=== PATIENT | female | born 1970 | race African-American/Black ===

== ENCOUNTER 2018-12-31 10:03 | Emergency (ER) | payer OTHER ==
[~2018-12-31] VITALS: Ht 162.6 cm; Wt 84.2 kg
[2018-12-31 11:03] LABS: BACTERIA,URINE 0 /HPF (0-FEW); BILIRUBIN,URINE NEG (NEG); CLARITY,URINE HAZY; COLOR,URINE YELLOW; GLUCOSE,URINE NEG (NEG); HYALINE CASTS, URINE OCC /HPF; NITRITE,URINE NEG (NEG); RBC,URINE 0 /HPF (0-2); SQUAMOUS EPITHELIAL CELL,UR FEW /LPF; U PREG PATIENT NEGATIVE (NEG); UROBILINOGEN,URINE 0.2 mg/dL (0.2 mg/dL); WBC,URINE RARE /HPF (0-4)
[2018-12-31] MEDS ORDERED: IBUPROFEN 400 MG TABLET. PO ONE (11:10)
--- NOTE | 2018-12-31 11:57 | PHYS DOC ---
Past History Past Medical History: UTI Past Surgical History: Tubal ligation, Other Alcohol Use: None Drug Use: None Adult General Chief Complaint Chief Complaint: ABDOMINAL PAIN HPI HPI Patient is a 48 year old female who presents with complaining of lower abdominal pain. Patient states she was seen at urgent care because of the same pain and treated for UTI for 10 days with medication and" medication 2 days ago. Patient states her pain increased since she has stopped her medication. Patient said the pain is in suprapubic and left lower quadrant as a crampy pain with radiation to pelvis. Patient denies nausea and vomiting, urinary symptoms, diarrhea and constipation, fever and chills, vaginal bleeding or discharge. Patient states she had irregular menstruation for the last few months and had 1 month of vaginal bleeding in November that stopped recently. 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 Review of Systems Review of Systems Constitutional: Denies fever or chills [] Eyes: Denies change in visual acuity, redness, or eye pain [] HENT: Denies nasal congestion or sore throat [] Respiratory: Denies cough or shortness of breath [] Cardiovascular: No additional information not addressed in HPI [] GI: Reports abdominal pain, denies nausea, vomiting, bloody stools or diarrhea [ ] : Denies dysuria or hematuria [] Musculoskeletal: Denies back pain or joint pain [] Integument: Denies rash or skin lesions [] Neurologic: Denies headache, focal weakness or sensory changes [] Endocrine: Denies polyuria or polydipsia [] All other systems were reviewed and found to be within normal limits, except as documented in this note. Current Medications Current Medications Current Medications Medications (Trade) Dose Ordered Sig/Kaiden Start Time Stop Time Status Last Admin Dose Admin Ibuprofen (Motrin) 800 mg 1X ONCE 12/31/18 11:10 12/31/18 11:11 DC 12/31/18 10:54 800 MG Allergies Allergies Allergies Coded Allergies Type Severity Reaction Last Updated Verified No Known Drug Allergies 12/31/18 No Physical Exam Physical Exam Constitutional: Well developed, well nourished, mild distress, non-toxic appearance. [] HENT: Normocephalic, atraumatic Eyes: PERRLA, EOMI, conjunctiva normal, no discharge. [] Neck: Normal range of motion, no tenderness, supple, no stridor. [] Cardiovascular:Heart rate regular rhythm, no murmur [] Lungs & Thorax: Bilateral breath sounds clear to auscultation [] Abdomen: Bowel sounds normal, soft, no tenderness, suprapubic guarding, no masses, no pulsatile masses. [] Skin: Warm, dry, no erythema, no rash. [] Back: No tenderness, no CVA tenderness. [] Extremities: No tenderness, no cyanosis, no clubbing, ROM intact, no edema. [] Neurologic: Alert and oriented X 3, normal motor function, normal sensory function, no focal deficits noted. [] Psychologic: Affect normal, judgement normal, mood normal. [] Current Patient Data Vital Signs Vital Signs Date Time Temp Pulse Resp B/P (MAP) Pulse Ox O2 Delivery O2 Flow Rate FiO2 12/31/18 10:15 98.2 80 18 97 Room Air Lab Results Laboratory Tests Test 12/31/18 10:30 Urine Collection Type Unknown Urine Color Yellow Urine Clarity Hazy Urine pH 5.0 Urine Specific [place] 1.020 Urine Protein Neg (NEG-TRACE) Urine Glucose (UA) Neg mg/dL (NEG) Urine Ketones (Stick) Neg mg/dL (NEG) Urine Blood Neg (NEG) Urine Nitrite Neg (NEG) Urine Bilirubin Neg (NEG) Urine Urobilinogen Dipstick 0.2 mg/dL (0.2 mg/dL) Urine Leukocyte Esterase Trace (NEG) Urine RBC 0 /HPF (0-2) Urine WBC Rare /HPF (0-4) Urine Squamous Epithelial Cells Few /LPF Urine Bacteria 0 /HPF (0-FEW) Urine Hyaline Casts Occ /HPF Urine Mucus Slight /LPF Urine Test Negative (NEG) EKG EKG [] Radiology/Procedures Radiology/Procedures [address] [address] IMAGING REPORT Signed PATIENT: MAXIMILIANO DUARTE ACCOUNT: [id number] : 1970 LOCATION: ER AGE: 48 SEX: F EXAM STATUS: REG ER ORD. PHYSICIAN: HUNTER SHELTON MD REASON: suprapubic pain PROCEDURE: PELVIS COMPLETE Pelvic ultrasound dated 12/31/2018. No comparison available. Clinical data indication: Suprapubic pain. FINDINGS: Transabdominal pelvic ultrasound was performed. Uterus measures 11.6 x 6.8 x 7.8 cm. Large hypoechoic nodule within the uterine myometrium measuring up to 6.8 cm in size. The endometrium is not clearly visualized and likely obscured by the large mass. Right ovary measures 4.0 x 2.3 x 3.0 cm. Left ovary measures 4.9 x 6.1 x 5.4 cm. Simple cyst or dominant follicle at the left ovary measuring up to 1.8 cm in size. Normal color Doppler flow to both ovaries. No free fluid. IMPRESSION: 1. No acute sonographic abnormality. 2. Fibroid uterus. Electronically signed by: Dontae Cagle MD (12/31/2018 11:57 AM) [facility] DICTATED AND SIGNED BY: DONTAE CAGLE MD DATE: 12/31/18 1157 CC: HUNTER SHELTON MD; PCP,NO ~ Course & Med Decision Making Course & Med Decision Making Pertinent Labs and Imaging studies reviewed. (See chart for details) [] Dragon Disclaimer Dragon Disclaimer This electronic medical record was generated, in whole or in part, using a voice recognition dictation system. Departure Departure: Impression: Primary Impression: Pelvic pain Additional Impressions: Uterine fibroid Perimenopausal menorrhagia Disposition: 01 HOME, SELF-CARE (at 1225) Condition: IMPROVED Referrals: PCP,ANT (PCP) Patient Instructions: Pelvic Pain, Female, Uterine Fibroid, [id number] Additional Instructions: Drink plenty of liquids Follow-up with your CONSTRUCTION ANALYST physician in 3-5 days Return to ER if not getting better Scripts Naproxen (NAPROSYN) 500 Mg Tablet 500 MG PO BID for pain, #20 TAB Prov: HUNTER SHELTON MD 12/31/18 Problem Qualifiers Additional Impressions: Uterine fibroid Uterine leiomyoma location: unspecified location Qualified Codes: D25.9 - Leiomyoma of uterus, unspecified HUNTER SHELTON MD Dec 31, 2018 11:57
--- NOTE | 2018-12-31 12:00 | RAD ---
Pelvic ultrasound dated 12/31/2018. No comparison available. Clinical data indication: Suprapubic pain. FINDINGS: Transabdominal pelvic ultrasound was performed. Uterus measures 11.6 x 6.8 x 7.8 cm. Large hypoechoic nodule within the uterine myometrium measuring up to 6.8 cm in size. The endometrium is not clearly visualized and likely obscured by the large mass. Right ovary measures 4.0 x 2.3 x 3.0 cm. Left ovary measures 4.9 x 6.1 x 5.4 cm. Simple cyst or dominant follicle at the left ovary measuring up to 1.8 cm in size. Normal color Doppler flow to both ovaries. No free fluid. IMPRESSION: 1. No acute sonographic abnormality. 2. Fibroid uterus. Electronically signed by: Dontae Cagle MD (12/31/2018 11:57 AM) [facility]
[2018-12-31] MEDS ORDERED: NAPR-683 PO (12:27)
[2018-12-31 12:37] VITALS: BP 109/53
== END 2018-12-31 12:37 | disposition home or self-care (01) ==
LOC: ER 10:03
DX: D25.9 Leiomyoma of uterus, unspecified (principal); N92.4 Excessive bleeding in the premenopausal period; Z87.440 Personal history of urinary (tract) infections; Z98.51 Tubal ligation status
CPT/HCPCS: 76856; 81001; 81025; 87086; 99284

== ENCOUNTER 2019-01-21 17:00 | Emergency (ER) | payer OTHER ==
[~2019-01-21] VITALS: Ht 162.6 cm; Wt 89.6 kg
[~2019-01-21 17:00] MED LIST: NAPR-683 PO
[2019-01-21] MEDS ORDERED: ASPIRIN 81 MG TAB.CHEW PO ONE (17:45)
--- NOTE | 2019-01-21 17:52 | PHYS DOC ---
Past History Past Medical History: UTI (DEJUAN LAWRENCE DO) Past Surgical History: Tubal ligation, Other (DEJUAN LAWRENCE DO) Smoking: Non-smoker Alcohol Use: Occasionally Drug Use: None (DEJUAN LAWRENCE DO) Adult General Chief Complaint Chief Complaint: CHEST PAIN HPI HPI Patient is a 48-year-old female presents with right-sided chest pain and cough since approximately 3:00 this morning. Coughing makes the chest discomfort worse. No worse with exertion. No significant respirophasic component. Patient has had no recent travel, no trauma, no known hypercoagulable state. No fever. No medicines have been taken. Patient has been on antibiotics for recent urinary tract infection.] (DEJUAN LAWRENCE DO) Review of Systems Review of Systems Constitutional: Denies fever or chills [] Eyes: Denies change in visual acuity, redness, or eye pain [] HENT: Denies nasal congestion or sore throat [] Respiratory: Denies cough or shortness of breath [] Cardiovascular: No additional information not addressed in HPI [] GI: Denies abdominal pain, nausea, vomiting, bloody stools or diarrhea [] : Denies dysuria or hematuria [] Musculoskeletal: Denies back pain or joint pain [] Integument: Denies rash or skin lesions [] Neurologic: Denies headache, focal weakness or sensory changes [] Endocrine: Denies polyuria or polydipsia [] All other systems were reviewed and found to be within normal limits, except as documented in this note. (DEJUAN LAWRENCE DO) Current Medications Current Medications Current Medications Medications (Trade) Dose Ordered Sig/Kaiden Start Time Stop Time Status Last Admin Dose Admin Aspirin (Children'S Aspirin) 324 mg 1X ONCE 01/21/19 17:45 01/21/19 17:46 UNV (DEJUAN LAWRENCE DO) Allergies Allergies Allergies Coded Allergies Type Severity Reaction Last Updated Verified No Known Drug Allergies 01/21/19 No (DEJUAN LAWRENCE DO) Physical Exam Physical Exam Constitutional: Well developed, well nourished, no acute distress, non-toxic appearance. [] HENT: Normocephalic, atraumatic, bilateral external ears normal, oropharynx moist, no oral exudates, nose normal. [] Eyes: PERRLA, EOMI, conjunctiva normal, no discharge. [] Neck: Normal range of motion, no tenderness, supple, no stridor. [] Cardiovascular:Heart rate regular rhythm, no murmur [] Lungs & Thorax: Bilateral breath sounds clear to auscultation, mild chest discomfort with palpation over her right third and fourth intercostal space region mid clavicular line. [] Abdomen: Bowel sounds normal, soft, no tenderness, no masses, no pulsatile masses. [] Skin: Warm, dry, no erythema, no rash. [] Back: No tenderness, no CVA tenderness. [] Extremities: No tenderness, no cyanosis, no clubbing, ROM intact, no edema. [] Neurologic: Alert and oriented X 3, normal motor function, normal sensory function, no focal deficits noted. [] Psychologic: Affect normal, judgement normal, mood normal. [] ([facility]) Current Patient Data Vital Signs Vital Signs Date Time Temp Pulse Resp B/P (MAP) Pulse Ox O2 Delivery O2 Flow Rate FiO2 01/21/19 17:06 98.3 97 18 100 Room Air ([facility]) Lab Results Laboratory Tests Test 01/21/19 17:30 01/21/19 17:54 01/21/19 17:58 White Blood Count 4.2 x10^3/uL Red Blood Count 4.58 x10^6/uL Hemoglobin 11.8 g/dL Hematocrit 36.7 % Mean Corpuscular Volume 80 fL Mean Corpuscular Hemoglobin 26 pg Mean Corpuscular Hemoglobin Concent 32 g/dL Red Cell Distribution Width 16.8 % Platelet Count 177 x10^3/uL Neutrophils (%) (Auto) 59 % Lymphocytes (%) (Auto) 27 % Monocytes (%) (Auto) 10 % Eosinophils (%) (Auto) 4 % Basophils (%) (Auto) 1 % Neutrophils # (Auto) 2.5 x10^3uL Lymphocytes # (Auto) 1.1 x10^3/uL Monocytes # (Auto) 0.4 x10^3/uL Eosinophils # (Auto) 0.2 x10^3/uL Basophils # (Auto) 0.0 x10^3/uL Prothrombin Time 10.0 SEC Prothromb Time International Ratio 1.0 D-Dimer (Rosario) 0.19 mg/L Sodium Level 140 mmol/L Potassium Level 3.4 mmol/L Chloride Level 104 mmol/L Carbon Dioxide Level 27 mmol/L Anion Gap 9 Blood Urea Nitrogen 12 mg/dL Creatinine 0.8 mg/dL Estimated GFR (Cockcroft-Gault) 92.2 BUN/Creatinine Ratio 15 Glucose Level 93 mg/dL Calcium Level 8.6 mg/dL Magnesium Level 1.7 mg/dL Total Bilirubin 0.3 mg/dL Aspartate Amino Transf (AST/SGOT) 17 U/L Alanine Aminotransferase (ALT/SGPT) 19 U/L Alkaline Phosphatase 68 U/L Troponin I Quantitative < 0.017 ng/mL Total Protein 7.0 g/dL Albumin 3.4 g/dL Albumin/Globulin Ratio 0.9 Lipase 202 U/L Urine Collection Type Void Urine Color Straw Urine Clarity Clear Urine pH 7.0 Urine Specific [place] 1.010 Urine Protein Neg Urine Glucose (UA) Neg mg/dL Urine Ketones (Stick) Neg mg/dL Urine Blood Neg Urine Nitrite Neg Urine Bilirubin Neg Urine Urobilinogen Dipstick 0.2 mg/dL Urine Leukocyte Esterase Neg Urine RBC 0 /HPF Urine WBC 0 /HPF Urine Squamous Epithelial Cells Few /LPF Urine Bacteria 0 /HPF Bedside Urine HCG, Qualitative hcg negative Current Medications Medications (Trade) Dose Ordered Sig/Kaiden Route PRN Reason Start Time Stop Time Status Last Admin Dose Admin Aspirin (Children'S Aspirin) 324 mg 1X ONCE PO 01/21/19 17:45 01/21/19 17:47 DC 01/21/19 17:47 (CAYLA WOODRUFF MD) EKG EKG EKG shows a sinus rhythm at 85 bpm, left word axis at -4, QTC of 457 ms, no ST elevations, interpreted by me at 1729.[] (DEJUAN LAWRENCE DO) Radiology/Procedures Radiology/Procedures [] (DEJUAN LAWRENCE DO) Radiology/Procedures [address] [address] IMAGING REPORT Signed PATIENT: MAXIMILIANO DUARTE ACCOUNT: [id number] : 1970 LOCATION: ER AGE: 48 SEX: F EXAM STATUS: REG ER ORD. PHYSICIAN: DEJUAN LAWRENCE DO REASON: Right-sided chest pain and cough PROCEDURE: PORTABLE CHEST 1V PROCEDURE: PORTABLE CHEST 1V CLINICAL INDICATION: Right-sided chest pain and cough COMPARISON: None FINDINGS: No pneumothorax identified. Cardiac and mediastinal contours unremarkable. No pulmonary consolidation or acute airspace disease. No acute osseous abnormalities identified. IMPRESSION: No pulmonary consolidation or acute airspace disease. Electronically signed by: Socrates Lewis DO (01/21/2019 6:02 PM) [facility] DICTATED AND SIGNED BY: SOCRATES LEWIS DO DATE: 01/21/19 180 CC: DEJUAN LAWRENCE DO; PCP,ANT ~ (CAYLA WOODRUFF MD) Course & Med Decision Making Course & Med Decision Making Pertinent Labs and Imaging studies reviewed. (See chart for details) Patient has been stable in the emergency department during my care. Her differential diagnosis includes possibility of cardiac etiology, pneumonia, pneumothorax, pulmonary embolism and ACS. Patient care is being endorsed 1800 to the night ER physician with laboratory and imaging tests pending.[] (DEJUAN LAWRENCE DO) Course & Med Decision Making Addendum by Dr. Cayla Woodruff at 1831: I took over care of patient at 1800 as noted. I followed up at the patient's blood work and x-ray studies. Patient's d-dimer level is within normal limits and patient's troponin level is not elevated. Given that patient's pain has been constant for the past 16 hours, 1 set of cardiac enzymes is sufficient to rule out acute cardiac ischemia. HEART score is 2, placing patient in low risk category for major acute cardiac event. The patient's symptoms appear consistent with pleurisy. Patient will be started on Naprosyn therapy and recommended follow-up with primary doctor in 3 days. Also given outpatient referral to Dr. Smallwood of cardiology to schedule outpatient stress testing. Recommended return to the emergency department for any worsening symptoms. Patient was understanding and in agreement with treatment plan. (CAYLA WOODRUFF MD) Dragon Disclaimer Dragon Disclaimer This electronic medical record was generated, in whole or in part, using a voice recognition dictation system. (DEJUAN LAWRENCE DO) Departure Departure: Impression: Primary Impression: Atypical chest pain Disposition: HOME, SELF-CARE Condition: IMPROVED Referrals: PCP,ATN (PCP) JORGE SMALLWOOD MD Patient Instructions: Chest Pain (Nonspecific) Additional Instructions: Call the office of Dr. Smallwood tomorrow to schedule an appointment in the next 3 days for reevaluation and possible outpatient stress testing. Is also recommended that she follow-up with your primary doctor in the next 3-4 days for reevaluation. Return to emergency department for any worsening symptoms. Scripts Naproxen (NAPROSYN) 500 Mg Tablet 1 TAB PO BID, #20 TAB 0 Refills Prov: CAYLA WOODRUFF MD 01/21/19 DEJUAN LAWRENCE DO Jan 21, 2019 17:52 CAYLA WOODRUFF MD Jan 21, 2019 18:37
[2019-01-21 17:58] LABS: BASO % 1 % (0-3); EOS # 0.2 x10^3/uL (0.0-0.7); EOS % 4 % (0-3); HEMATOCRIT 36.7 % (36.0-47.0); HEMOGLOBIN 11.8 g/dL (12.0-15.5); LYMPH # 1.1 x10^3/uL (1.0-4.8); LYMPH % 27 % (24-48); MEAN CORPUSCULAR HEMOGLOBIN 26 pg (25-35); MEAN CORPUSCULAR HGB CONC 32 g/dL (31-37); MEAN CORPUSCULAR VOLUME 80 fL (79-100); MONO # 0.4 x10^3/uL (0.0-1.1); MONO % 10 % (0-9); NEUT # 2.5 x10^3uL (1.8-7.7); NEUT % 59 % (31-73); PLATELET COUNT 177 x10^3/uL (140-400); RED BLOOD COUNT 4.58 x10^6/uL (3.50-5.40); RED CELL DISTRIBUTION WIDTH 16.8 % (11.5-14.5); WHITE BLOOD COUNT 4.2 x10^3/uL (4.0-11.0)
--- NOTE | 2019-01-21 18:05 | RAD ---
PROCEDURE: PORTABLE CHEST 1V CLINICAL INDICATION: Right-sided chest pain and cough COMPARISON: None FINDINGS: No pneumothorax identified. Cardiac and mediastinal contours unremarkable. No pulmonary consolidation or acute airspace disease. No acute osseous abnormalities identified. IMPRESSION: No pulmonary consolidation or acute airspace disease. Electronically signed by: Socrates Lewis DO (01/21/2019 6:02 PM) [facility]
[2019-01-21 18:14] LABS: BACTERIA,URINE 0 /HPF (0-FEW); BILIRUBIN,URINE NEG (NEG); CLARITY,URINE CLEAR; COLOR,URINE STRAW; GLUCOSE,URINE NEG (NEG); NITRITE,URINE NEG (NEG); RBC,URINE 0 /HPF (0-2); SQUAMOUS EPITHELIAL CELL,UR FEW /LPF; UROBILINOGEN,URINE 0.2 mg/dL (0.2 mg/dL); WBC,URINE 0 /HPF (0-4)
[2019-01-21 18:19] LABS: ALBUMIN 3.4 g/dL (3.4-5.0); ALBUMIN/GLOBULIN RATIO 0.9 (1.0-1.7); CALCIUM 8.6 mg/dL (8.5-10.1); CREATININE 0.8 mg/dL (0.6-1.0); GFR 92.2; MAGNESIUM 1.7 mg/dL (1.8-2.4); POTASSIUM 3.4 mmol/L (3.5-5.1); TOTAL BILIRUBIN 0.3 mg/dL (0.2-1.0)
[2019-01-21] MEDS ORDERED: NAPR-683 PO (18:36)
[2019-01-21 18:46] VITALS: BP 126/79
--- NOTE | 2019-01-22 06:41 | EKG ---
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
== END 2019-01-21 18:46 | disposition home or self-care (01) ==
LOC: ER 17:00
DX: R07.89 Other chest pain (principal); Z87.440 Personal history of urinary (tract) infections
CPT/HCPCS: 36415; 71045; 80053; 81001; 81025; 83690; 83735; 84443; 84484; 85025; 85379; 85610; 93005; 99284-25

== ENCOUNTER → 2019-02-07 | Outpatient (CLI) | payer OTHER ==
[2019-01-21 18:46] VITALS: BP 126/79
[~2019-02-07] MED LIST changes: +IOHEXOL 300 MG/ML 75 ML VIAL. IV ONE
--- NOTE | 2019-02-07 16:37 | RAD ---
CT of the abdomen and pelvis with contrast, 02/07/2019: HISTORY: Left lower quadrant pain, diarrhea Multidetector CT imaging was performed following an IV bolus injection of iodinated contrast material. No oral contrast material was administered as requested. There is mild streaky atelectasis and/or scarring in the lung bases. A couple of very tiny scattered subcentimeter low-density lesions are present in the liver. These are too small to definitively characterize but are probably cysts and/or hepatic hamartomas. No bile duct dilatation is seen. The gallbladder is unremarkable. The pancreas shows no abnormality. The spleen is of normal size. No renal or adrenal abnormality is detected. The aorta is unremarkable. There is a portocaval lymph node of borderline size measuring 1 cm in short axis dimension on the coronal images. There is a 2 cm low density mass between the aorta and inferior vena cava along the inferior margin of the third portion of the duodenum. It has the appearance of a nonspecific cyst. A low-density lymph node is much less likely. The uterus is markedly enlarged measuring 16.6 x 8.1 x 13.1 cm. It contains multiple masses some of which demonstrate decreased density internally compatible with necrosis. The largest discrete mass lies in the uterine fundus and is partially calcified. It measures approximately 7 x 8 cm. The appearance is that of numerous uterine fibroids. The central uterine cavity is distorted by these masses. It is mildly distended and contains fluid. There is a small soft tissue density protruding into its lumen probably representing a submucosal fibroid versus a polyp. A 2.3 cm cyst in the right adnexa is probably of ovarian origin. There appear to be several smaller cysts related to the left ovary. The bowel loops are not dilated. The appendix is visualized and shows no abnormality. No free fluid or free air is evident in the abdomen or pelvis. IMPRESSION: 1. Markedly enlarged uterus containing multiple fibroids as described above. 2. Small submucosal fibroid or polyp bulging into a mildly distended fluid-filled centimeters uterine cavity. 3. Small bilateral ovarian cysts. 4. Probable tiny hepatic cysts. 5. Small nonspecific retroperitoneal cyst. PQRS Compliance Statement: One or more of the following individualized dose reduction techniques were utilized for this examination: 1. Automated exposure control 2. Adjustment of the mA and/or kV according to patient size 3. Use of iterative reconstruction technique Electronically signed by: Greyson Ramires MD (02/07/2019 4:34 PM) [facility]
== END | disposition home or self-care (01) ==
LOC: CT 15:05
PROVIDERS: ATTEND Family Medicine
DX: D25.9 Leiomyoma of uterus, unspecified (principal); K52.89 Other specified noninfective gastroenteritis and colitis; N85.2 Hypertrophy of uterus; N83.202 Unspecified ovarian cyst, left side; N83.201 Unspecified ovarian cyst, right side; K68.9 Other disorders of retroperitoneum
CPT/HCPCS: 74177; Q9967

== ENCOUNTER 2019-04-24 17:45 | Emergency (ER) | payer OTHER ==
[~2019-04-24] VITALS: Ht 162.6 cm; Wt 87.9 kg
[~2019-04-24 17:45] MED LIST changes: +IBUP400T18 PO; -IOHEXOL 300 MG/ML 75 ML VIAL. IV ONE; +LINA290C PO; +NAPR-514 PO; +OMEP40CA5 PO
--- NOTE | 2019-04-24 17:56 | ED.ADGEN ---
Past History Past Medical History: UTI Past Surgical History: Tubal ligation Smoking: Non-smoker Alcohol Use: Occasionally Drug Use: None Adult General Chief Complaint Chief Complaint ".. I am having irregular menstruation... However this period... . Has been going on for more than 10 days I usually have a period for 3 days.... They say I am going through the change of life... " HPI HPI Patient is a 48 year old female who presents with above hx and complaints irregular episodes administration the last several months. Patient denies any history of sexual activity activity or trauma. Patient denies any coagulopathy. Patient's Dr. Brittney Adamson is now improved. Patient denies previous problems or STDs. Or recurrence concerns of STD. No history of vaginal discharge. Has had history of dysmenorrhea and painful menstruations. No recent travel. No history immunosuppression. Normally healthy. Review of Systems Review of Systems Constitutional: Denies fever or chills [] Eyes: Denies change in visual acuity, redness, or eye pain [] HENT: Denies nasal congestion or sore throat [] Respiratory: Denies cough or shortness of breath [] Cardiovascular: No additional information not addressed in HPI [] GI: Denies abdominal pain, nausea, vomiting, bloody stools or diarrhea [] : Denies dysuria or hematuria [complaints of prolonged. Musculoskeletal: Denies back pain or joint pain [] Integument: Denies rash or skin lesions [] Neurologic: Denies headache, focal weakness or sensory changes [] Endocrine: Denies polyuria or polydipsia [] All other systems were reviewed and found to be within normal limits, except as documented in this note. Family History Family History Noncontributory Current Medications Current Medications Current Medications Medications (Trade) Dose Ordered Sig/Kaiden Start Time Stop Time Status Last Admin Dose Admin Estrogens Conjugated (Premarin) 25 mg 1X ONCE 04/24/19 20:00 04/24/19 20:01 DC 04/24/19 20:12 25 MG Sodium Chloride 500 ml @ 0 mls/hr 1X ONCE 04/24/19 20:00 04/24/19 20:06 DC 04/24/19 20:12 1,000 MLS/HR Allergies Allergies Allergies Coded Allergies Type Severity Reaction Last Updated Verified No Known Drug Allergies 01/21/19 No Physical Exam Physical Exam Constitutional: Well developed, well nourished, no acute distress, non-toxic appearance. [] HENT: Normocephalic, atraumatic, bilateral external ears normal, oropharynx moist, no oral exudates, nose normal. [] Eyes: PERRLA, EOMI, conjunctiva normal, no discharge. [] Neck: Normal range of motion, no tenderness, supple, no stridor. [] Cardiovascular:Heart rate regular rhythm, no murmur [] Lungs & Thorax: Bilateral breath sounds clear to auscultation [] Abdomen: Bowel sounds normal, soft, no tenderness, no masses, no pulsatile masses. [] Skin: Warm, dry, no erythema, no rash. [] Back: No tenderness, no CVA tenderness. [] Extremities: No tenderness, no cyanosis, no clubbing, ROM intact, no edema. [] Neurologic: Alert and oriented X 3, normal motor function, normal sensory function, no focal deficits noted. [] Psychologic: Affect anxious, judgement normal, mood normal. [] Current Patient Data Vital Signs Vital Signs Date Time Temp Pulse Resp B/P (MAP) Pulse Ox O2 Delivery O2 Flow Rate FiO2 04/24/19 20:47 74 18 111/71 (84) 100 Room Air 04/24/19 18:26 98.3 Lab Results Laboratory Tests Test 04/24/19 18:35 White Blood Count 4.5 x10^3/uL (4.0-11.0) Red Blood Count 4.53 x10^6/uL (3.50-5.40) Hemoglobin 12.2 g/dL (12.0-15.5) Hematocrit 37.4 % (36.0-47.0) Mean Corpuscular Volume 83 fL (79-100) Mean Corpuscular Hemoglobin 27 pg (25-35) Mean Corpuscular Hemoglobin Concent 33 g/dL (31-37) Red Cell Distribution Width 15.3 % (11.5-14.5) H Platelet Count 182 x10^3/uL (140-400) Neutrophils (%) (Auto) 60 % (31-73) Lymphocytes (%) (Auto) 28 % (24-48) Monocytes (%) (Auto) 8 % (0-9) Eosinophils (%) (Auto) 3 % (0-3) Basophils (%) (Auto) 1 % (0-3) Neutrophils # (Auto) 2.7 x10^3uL (1.8-7.7) Lymphocytes # (Auto) 1.3 x10^3/uL (1.0-4.8) Monocytes # (Auto) 0.4 x10^3/uL (0.0-1.1) Eosinophils # (Auto) 0.1 x10^3/uL (0.0-0.7) Basophils # (Auto) 0.0 x10^3/uL (0.0-0.2) Prothrombin Time 9.6 SEC (9.4-11.4) Prothrombin Time INR 0.9 (0.9-1.1) PTT 26 SEC (23-33) Urine Collection Type Unknown Urine Color Yellow Urine Clarity Hazy Urine pH 6.0 Urine Specific [place]ola 1.025 Urine Protein Neg (NEG-TRACE) Urine Glucose (UA) Neg mg/dL (NEG) Urine Ketones (Stick) Neg mg/dL (NEG) Urine Blood Large (NEG) Urine Nitrite Neg (NEG) Urine Bilirubin Neg (NEG) Urine Urobilinogen Dipstick 0.2 mg/dL (0.2 mg/dL) Urine Leukocyte Esterase Neg (NEG) Urine RBC 11-20 /HPF (0-2) Urine WBC Occ /HPF (0-4) Urine Squamous Epithelial Cells Occ /LPF Urine Bacteria Few /HPF (0-FEW) Sodium Level 141 mmol/L (136-145) Potassium Level 3.5 mmol/L (3.5-5.1) Chloride Level 106 mmol/L (98-107) Carbon Dioxide Level 25 mmol/L (21-32) Anion Gap 10 (6-14) Blood Urea Nitrogen 15 mg/dL (7-20) Creatinine 1.0 mg/dL (0.6-1.0) Estimated GFR (Cockcroft-Gault) 71.3 Glucose Level 88 mg/dL (70-99) Calcium Level 8.8 mg/dL (8.5-10.1) Serum Test, Qualitative Negative (NEG) EKG EKG [] Radiology/Procedures Radiology/Procedures [] Course & Med Decision Making Course & Med Decision Making Pertinent Labs and Imaging studies reviewed. (See chart for details). Patient must follow-up primary care. Patient follow-up with [facility]. Patient may need endometrial biopsy and ultrasound. May require control or ablation. Will treat with 1 dose of Premarin tonight. Must follow-up. Continue pad counts. Return if any concerns. [] Final Impression Final Impression 1. Dysmenorrhea-dysfunctional uterine bleeding Dragon Disclaimer Dragon Disclaimer This electronic medical record was generated, in whole or in part, using a voice recognition dictation system. Discharge Summary Visit Information Final Diagnosis Problems Medical Problems: (1) Dysfunctional uterine bleeding Status: Acute Brief Hospital Course Allergies Allergies Coded Allergies Type Severity Reaction Last Updated Verified No Known Drug Allergies 01/21/19 No Vital Signs Vital Signs Date Time Temp Pulse Resp B/P (MAP) Pulse Ox O2 Delivery O2 Flow Rate FiO2 04/24/19 20:47 74 18 111/71 (84) 100 Room Air 04/24/19 18:26 98.3 Lab Results Laboratory Tests Test 04/24/19 18:35 White Blood Count 4.5 x10^3/uL (4.0-11.0) Red Blood Count 4.53 x10^6/uL (3.50-5.40) Hemoglobin 12.2 g/dL (12.0-15.5) Hematocrit 37.4 % (36.0-47.0) Mean Corpuscular Volume 83 fL (79-100) Mean Corpuscular Hemoglobin 27 pg (25-35) Mean Corpuscular Hemoglobin Concent 33 g/dL (31-37) Red Cell Distribution Width 15.3 % (11.5-14.5) Platelet Count 182 x10^3/uL (140-400) Neutrophils (%) (Auto) 60 % (31-73) Lymphocytes (%) (Auto) 28 % (24-48) Monocytes (%) (Auto) 8 % (0-9) Eosinophils (%) (Auto) 3 % (0-3) Basophils (%) (Auto) 1 % (0-3) Neutrophils # (Auto) 2.7 x10^3uL (1.8-7.7) Lymphocytes # (Auto) 1.3 x10^3/uL (1.0-4.8) Monocytes # (Auto) 0.4 x10^3/uL (0.0-1.1) Eosinophils # (Auto) 0.1 x10^3/uL (0.0-0.7) Basophils # (Auto) 0.0 x10^3/uL (0.0-0.2) Prothrombin Time 9.6 SEC (9.4-11.4) Prothromb Time International Ratio 0.9 (0.9-1.1) Activated Partial Thromboplast Time 26 SEC (23-33) Urine Collection Type Unknown Urine Color Yellow Urine Clarity Hazy Urine pH 6.0 Urine Specific [place] 1.025 Urine Protein Neg (NEG-TRACE) Urine Glucose (UA) Neg mg/dL (NEG) Urine Ketones (Stick) Neg mg/dL (NEG) Urine Blood Large (NEG) Urine Nitrite Neg (NEG) Urine Bilirubin Neg (NEG) Urine Urobilinogen Dipstick 0.2 mg/dL (0.2 mg/dL) Urine Leukocyte Esterase Neg (NEG) Urine RBC 11-20 /HPF (0-2) Urine WBC Occ /HPF (0-4) Urine Squamous Epithelial Cells Occ /LPF Urine Bacteria Few /HPF (0-FEW) Sodium Level 141 mmol/L (136-145) Potassium Level 3.5 mmol/L (3.5-5.1) Chloride Level 106 mmol/L (98-107) Carbon Dioxide Level 25 mmol/L (21-32) Anion Gap 10 (6-14) Blood Urea Nitrogen 15 mg/dL (7-20) Creatinine 1.0 mg/dL (0.6-1.0) Estimated GFR (Cockcroft-Gault) 71.3 Glucose Level 88 mg/dL (70-99) Calcium Level 8.8 mg/dL (8.5-10.1) Serum Test, Qualitative Negative (NEG) Brief Hospital Course Ms. Mccartney is a 48 old female who presented with dysfunctional uterine bleeding. 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 May need ultrasound and endometrial biopsy. Must follow-up Discharge Information Condition at Discharge: Stable Disposition/Orders: D/C to Home Dischare Medications Current Medications Estrogens Conjugated (Premarin) 25 mg 1X ONCE IV Last administered on 04/24/19at 20:12; Admin Dose 25 MG; Start 04/24/19 at 20:00; Stop 04/24/19 at 20:01; Status DC Sodium Chloride 500 ml @ 0 mls/hr 1X ONCE IV Last administered on 04/24/19at 20:12; Admin Dose 1,000 MLS/HR; Start 04/24/19 at 20:00; Stop 04/24/19 at 20:06; Status DC Active Scripts Active Reported Linzess (Linaclotide) 290 Mcg Capsule 290 Mcg PO DAILY Naproxen 500 Mg Tablet 0.5 Tab PO BID Ibuprofen 400 Mg Tablet 1.5 Tab PO PRN Q6HRS Omeprazole 40 Mg Capsule. 1 Cap PO DAILY Discharge Summary Visit Information Final Diagnosis Problems Medical Problems: (1) Dysfunctional uterine bleeding Status: Acute Brief Hospital Course Allergies Allergies Coded Allergies Type Severity Reaction Last Updated Verified No Known Drug Allergies 01/21/19 No Vital Signs Vital Signs Date Time Temp Pulse Resp B/P (MAP) Pulse Ox O2 Delivery O2 Flow Rate FiO2 04/24/19 20:47 74 18 111/71 (84) 100 Room Air 04/24/19 18:26 98.3 Lab Results Laboratory Tests Test 04/24/19 18:35 White Blood Count 4.5 x10^3/uL (4.0-11.0) Red Blood Count 4.53 x10^6/uL (3.50-5.40) Hemoglobin 12.2 g/dL (12.0-15.5) Hematocrit 37.4 % (36.0-47.0) Mean Corpuscular Volume 83 fL (79-100) Mean Corpuscular Hemoglobin 27 pg (25-35) Mean Corpuscular Hemoglobin Concent 33 g/dL (31-37) Red Cell Distribution Width 15.3 % (11.5-14.5) Platelet Count 182 x10^3/uL (140-400) Neutrophils (%) (Auto) 60 % (31-73) Lymphocytes (%) (Auto) 28 % (24-48) Monocytes (%) (Auto) 8 % (0-9) Eosinophils (%) (Auto) 3 % (0-3) Basophils (%) (Auto) 1 % (0-3) Neutrophils # (Auto) 2.7 x10^3uL (1.8-7.7) Lymphocytes # (Auto) 1.3 x10^3/uL (1.0-4.8) Monocytes # (Auto) 0.4 x10^3/uL (0.0-1.1) Eosinophils # (Auto) 0.1 x10^3/uL (0.0-0.7) Basophils # (Auto) 0.0 x10^3/uL (0.0-0.2) Prothrombin Time 9.6 SEC (9.4-11.4) Prothromb Time International Ratio 0.9 (0.9-1.1) Activated Partial Thromboplast Time 26 SEC (23-33) Urine Collection Type Unknown Urine Color Yellow Urine Clarity Hazy Urine pH 6.0 Urine Specific [place] 1.025 Urine Protein Neg (NEG-TRACE) Urine Glucose (UA) Neg mg/dL (NEG) Urine Ketones (Stick) Neg mg/dL (NEG) Urine Blood Large (NEG) Urine Nitrite Neg (NEG) Urine Bilirubin Neg (NEG) Urine Urobilinogen Dipstick 0.2 mg/dL (0.2 mg/dL) Urine Leukocyte Esterase Neg (NEG) Urine RBC 11-20 /HPF (0-2) Urine WBC Occ /HPF (0-4) Urine Squamous Epithelial Cells Occ /LPF Urine Bacteria Few /HPF (0-FEW) Sodium Level 141 mmol/L (136-145) Potassium Level 3.5 mmol/L (3.5-5.1) Chloride Level 106 mmol/L (98-107) Carbon Dioxide Level 25 mmol/L (21-32) Anion Gap 10 (6-14) Blood Urea Nitrogen 15 mg/dL (7-20) Creatinine 1.0 mg/dL (0.6-1.0) Estimated GFR (Cockcroft-Gault) 71.3 Glucose Level 88 mg/dL (70-99) Calcium Level 8.8 mg/dL (8.5-10.1) Serum Test, Qualitative Negative (NEG) Brief Hospital Course Ms. Mccartney is a 48 old female who presented with dysfunctional uterine bleeding. Discharge Information Dischare Medications Current Medications Estrogens Conjugated (Premarin) 25 mg 1X ONCE IV Last administered on 04/24/19at 20:12; Admin Dose 25 MG; Start 04/24/19 at 20:00; Stop 04/24/19 at 20:01; Status DC Sodium Chloride 500 ml @ 0 mls/hr 1X ONCE IV Last administered on 04/24/19at 20:12; Admin Dose 1,000 MLS/HR; Start 04/24/19 at 20:00; Stop 04/24/19 at 20:06; Status DC Active Scripts Active Reported Linzess (Linaclotide) 290 Mcg Capsule 290 Mcg PO DAILY Naproxen 500 Mg Tablet 0.5 Tab PO BID Ibuprofen 400 Mg Tablet 1.5 Tab PO PRN Q6HRS Omeprazole 40 Mg Capsule. 1 Cap PO DAILY Dameon Disclaimer This chart was dictated in whole or in part using Voice Recognition software in a busy, high-work load, and often noisy Emergency Department environment. It may contain unintended and wholly unrecognized errors or omissions. Dameon Disclaimer This chart was dictated in whole or in part using Voice Recognition software in a busy, high-work load, and often noisy Emergency Department environment. It may contain unintended and wholly unrecognized errors or omissions. MARGARITA BEAULIEU MD Apr 24, 2019 17:56
[2019-04-24 18:56] LABS: BASO % 1 % (0-3); EOS # 0.1 x10^3/uL (0.0-0.7); EOS % 3 % (0-3); HEMATOCRIT 37.4 % (36.0-47.0); HEMOGLOBIN 12.2 g/dL (12.0-15.5); LYMPH # 1.3 x10^3/uL (1.0-4.8); LYMPH % 28 % (24-48); MEAN CORPUSCULAR HEMOGLOBIN 27 pg (25-35); MEAN CORPUSCULAR HGB CONC 33 g/dL (31-37); MEAN CORPUSCULAR VOLUME 83 fL (79-100); MONO # 0.4 x10^3/uL (0.0-1.1); MONO % 8 % (0-9); NEUT # 2.7 x10^3uL (1.8-7.7); NEUT % 60 % (31-73); PLATELET COUNT 182 x10^3/uL (140-400); RED BLOOD COUNT 4.53 x10^6/uL (3.50-5.40); RED CELL DISTRIBUTION WIDTH 15.3 % (11.5-14.5); WHITE BLOOD COUNT 4.5 x10^3/uL (4.0-11.0)
[2019-04-24 19:00] LABS: BILIRUBIN,URINE NEG (NEG); CLARITY,URINE HAZY; COLOR,URINE YELLOW; GLUCOSE,URINE NEG (NEG)
[2019-04-24 19:01] LABS: BACTERIA,URINE FEW /HPF (0-FEW); NITRITE,URINE NEG (NEG); SQUAMOUS EPITHELIAL CELL,UR OCC /LPF; UROBILINOGEN,URINE 0.2 mg/dL (0.2 mg/dL); WBC,URINE OCC /HPF (0-4)
[2019-04-24 19:05] LABS: CALCIUM 8.8 mg/dL (8.5-10.1); GFR 71.3; POTASSIUM 3.5 mmol/L (3.5-5.1)
[2019-04-24 19:08] LABS: PREG TEST PT QUAL NEGATIVE (NEG)
[2019-04-24] MEDS: IV NORMAL SALINE 500ML 500 ML IV ONE (20:12)
[2019-04-24] MEDS: ESTROGENS, CONJUGATED 25 MG VIAL IV ONE (20:12)
[2019-04-24 20:47] VITALS: BP 111/71
== END 2019-04-24 21:10 | disposition home or self-care (01) ==
LOC: ER 17:45
DX: N93.8 Other specified abnormal uterine and vaginal bleeding (principal); N94.6 Dysmenorrhea, unspecified; Z87.440 Personal history of urinary (tract) infections; Z98.51 Tubal ligation status
CPT/HCPCS: 36415; 80048; 81001; 84703; 85025; 85610; 85730; 96374; 99284; J1410; J7040

== ENCOUNTER → 2019-04-30 | Day surgery (SDC) | payer OTHER ==
[~2019-04-30] MED LIST changes: +ALBUTEROL SULFATE 2.5 MG/3 ML NEBU. NEB PRN; +ATROPINE 0.5 MG/5 ML DISP.SYRIN. IV PRN; +IV RINGERS SOLUTION,LACTATED 1,000 ML IV SCH; +LIDOCAINE 2% PF Vial for OR 5 ML VIAL. ONE; +NALOXONE 0.4 MG/ML VIAL. IV PRN; +ONDANSETRON PF 4 MG/2 ML VIAL. IV PRN; +PROPOFOL 40 ML IV ONE
[2019-04-30 12:14] LABS: U PREG PATIENT NEGATIVE (NEG)
[2019-04-30 13:14] VITALS: BP 108/67
== END ==
LOC: SURG 11:45
PROVIDERS: ATTEND Internal Medicine Gastroenterology
DX: K59.00 Constipation, unspecified (principal)
CPT/HCPCS: 45378; 81025; J2704; J7120; J2001

== ENCOUNTER 2020-08-06 06:34 | Emergency (ER) | payer OTHER ==
[~2020-08-06] VITALS: Ht 162.6 cm; Wt 91.0 kg
[~2020-08-06 06:34] MED LIST changes: -ALBUTEROL SULFATE 2.5 MG/3 ML NEBU. NEB PRN; -ATROPINE 0.5 MG/5 ML DISP.SYRIN. IV PRN; -IV RINGERS SOLUTION,LACTATED 1,000 ML IV SCH; -LIDOCAINE 2% PF Vial for OR 5 ML VIAL. ONE; -NALOXONE 0.4 MG/ML VIAL. IV PRN; +OMEP40CA45 PO; -OMEP40CA5 PO; -ONDANSETRON PF 4 MG/2 ML VIAL. IV PRN; -PROPOFOL 40 ML IV ONE
--- NOTE | 2020-08-06 06:41 | PHYS DOC ---
Past History Past Medical History: No Pertinent History Past Surgical History: Tubal ligation Smoking: Non-smoker Alcohol Use: None Drug Use: None General Adult EDM: Chief Complaint: CHEST PAIN HPI: HPI: 50 yo AA F who denies any significant past medical history, presents to the ED with complaints of midsternal sharp chest pain that radiated to her back and right arm that started around 5:00 this morning while patient was getting up, associated " heart beating fast, dry mouth and could not breathe," stating she has onyl been sleeping 4hours/night for the past year (has been up since 2am, couldn't get back to sleep), significant stress in her marriage. Patient reports her father had 2 open heart surgeries and in December, unsure cause of , states "he lived in [place] and stopped breathing." Patient denies any cocaine or methamphetamine abuse, FH of sudden under the age of 50/aortic disease/connective tissue disorder. Patient also reports she has had "whole body aching and generalized pain, for a minute, for some years," and had an mri of her right knee. Had a well woman exam on Monday with her primary care physician Dr. Audi Pavon, "everything came out negative." Past surgical history of tubal ligation. Last menstrual period was 2 weeks ago at the end of the month. Patient denies any history of tobacco, alcohol or drug use. No prior history of stress test, echocardiogram or cardiac cath. States she missed work 1 month ago because she was not feeling well and had a negative Covid test (work required it). Does not take any routine medications. Reports she's had this chest pain before, usually relieves with motrin, did not take any analgesia today. Review of Systems: Review of Systems: Constitutional: Denies fever or chills Eyes: Denies change in visual acuity HENT: Denies nasal congestion or sore throat Respiratory: Denies cough or hemoptysis Cardiovascular: Denies chest pressure/tightness or syncope or edema GI: Denies abdominal pain, nausea, vomiting, bloody stools or diarrhea : Denies dysuria or hematuria Musculoskeletal: Denies joint pain or swelling Integument: Denies rash Neurologic: Denies headache, focal weakness or sensory changes or neck st iffness Endocrine: Denies polyuria or polydipsia Lymphatic: Denies swollen glands Psychiatric: Denies depression or SI/HI Heart Score: HEART Score for Chest Pain: HEART Score for Chest Pain Response (Comments) Value History Slighlty/Non-Suspicious 0 ECG Normal 0 Age >45 - < 65 1 Risk Factors 1 or 2 Risk Factors 1 Troponin < Normal Limit 0 Total 2 Risk Factors: Risk Factors: DM, Current or recent (<one month) smoker, HTN, HLP, family history of CAD, obesity. Risk Scores: Score 0 - 3: 2.5% MACE over next 6 weeks - Discharge Home Score 4 - 6: 20.3% MACE over next 6 weeks - Admit for Clinical Observation Score 7 - 10: 72.7% MACE over next 6 weeks - Early Invasive Strategies Allergies: Allergies: Allergies Coded Allergies Type Severity Reaction Last Updated Verified No Known Drug Allergies 01/21/19 No Physical Exam: PE: Constitutional: Well developed, well nourished, crying/tearful/emotionally overwhelmed, non-toxic appearance. [] HENT: Normocephalic, atraumatic, bilateral external ears normal, oropharynx moist, no oral exudates, nose normal. [] Eyes: EOMI, conjunctiva normal, Neck: Normal range of motion, supple, no stridor. [] Cardiovascular:Heart rate regular rhythm, no murmur [] Lungs & Thorax: Bilateral breath sounds clear to auscultation [] Abdomen: Bowel sounds normal, soft, no tenderness, no masses, no pulsatile masses. [] Skin: Warm, dry, no erythema, no rash. [] Extremities: No tenderness, no cyanosis, no clubbing, ROM intact, no edema. [] Neurologic: Alert and oriented X 3, normal motor function, normal sensory function, no focal deficits noted. [] Psychologic: judgement normal, no SI/HI/depression EKG: EKG: [] Sinus rhythm at 86 bpm, left axis deviation, normal intervals, no T wave inversions, no ST elevations or ST depressions Radiology/Procedures: Radiology/Procedures: IMAGING REPORT Signed PATIENT: MAXIMILIANO DUARTE ACCOUNT: [id number] : 1970 LOCATION: ER AGE: 50 SEX: F EXAM STATUS: REG ER ORD. PHYSICIAN: CLAY AZUL DO REASON: cp PROCEDURE: PORTABLE CHEST 1V PORTABLE CHEST 1V INDICATION: cp COMPARISON STUDY: 01/21/2019. FINDINGS: Lungs: Normal lung volume. No pulmonary mass or consolidation. The tracheobronchial tree and hilar structures are normal. Pleura: No pleural effusion or pneumothorax. Heart and Mediastinum: The cardiomediastinal silhouette is normal. The great vessels of the thorax are normal. IMPRESSION: No acute cardiopulmonary process. Electronically signed by: Rani Gustafson MD (08/06/2020 6:59 AM) [id number] DICTATED AND SIGNED BY: RANI GUSTAFSON MD DATE: 08/06/20 0659 CC: AUDI HUANG APRN; CLAY AZUL DO ~ Impressions: ADD-RS 1 points (abrupt onset) Proceed to D-dimer testing according to ADD-RS; if <500 ng/mL, consider stopping dissection workup, or if >500 ng/mL, consider CTA Course & Med Decision Making: Course & Med Decision Making Pertinent Labs and Imaging studies reviewed. (See chart for details) Concern for atypical chest pain in the setting of increased stress and anxiety - pt very overwhelmed on arrival. Patient now resting, in no distress, reports her pain has resolved. D-dimer is within normal limits. Chest x-ray with no acute process. 2 troponins are negative. Patient with low risk for mace. Strict ed return precautions given worsening pain, dyspnea, n/v, syncope, etc. Encouraged urgent outpatient follow-up with PMD and cardiology. Life- threatening processes were considered but are low suspicion at this time, given history and physical exam. Pt was educated on all prescription medications and adverse effects. All patient's questions were answered and pt was stable at time of discharge. Life/limb-threatening differential includes but is not limited to, acute myocardial infarction, aortic dissection, congestive heart failure, esophageal injury including rupture, surgical abdomen, arrhythmia, cardiomyopathy, myocarditis, pericarditis, peptic ulcer disease, pneumomediastinum, pneumonia, pneumothorax, pulmonary embolus, unstable angina, rib fracture, contusion, pericardial tamponade or effusion, pulmonary contusion I spoken with the patient and her caregivers. I explained the patient's condition, diagnoses and treatment plan based on the information available to me at this time. I have answered the patient and her caregiver's questions and addressed any concerns. The patient and her caregivers have a good understandin g of patient's diagnosis, condition and treatment plan as can be expected at this point. Vital signs have been stable. Patient's condition is stable and appropriate for discharge from the emergency department. Patient will pursue further outpatient evaluation with primary care physician or other designated or consulting physician as outlined in the discharge instructions. The patient and/or caregivers are agreeable to this plan of care and follow-up instructions have been explained in detail. The patient and/or caregivers have received these instructions in written form and have expressed an understanding of the discharge instructions. The patient and/or caregivers are aware that any significant change of condition or worsening of symptoms should prompt immediate return to this or the closest emergency department or call to [phone]. Dameon Disclaimer: [employer] Disclaimer: This electronic medical record was generated, in whole or in part, using a voice recognition dictation system. Departure Departure: Impression: Primary Impression: Chest pain Additional Impression: Anxiety Disposition: 01 DC HOME SELF CARE/HOMELESS Condition: STABLE Referrals: AUDI HUANG APRN (PCP) Patient Instructions: Anxiety and Panic Attacks, Chest Pain (Nonspecific) Additional Instructions: FOLLOW UP WITH CARDIOLOGY: [facility] [address] [address] [place] [facility] [address] [address] EMERGENCY DEPARTMENT GENERAL DISCHARGE INSTRUCTIONS Thank you for coming to [facility] (ED) today and trusting us with you care. We trust that you had a positivie experience in our Emergency Department. If you wish to speak to the department management, you may call the director at . YOUR FOLLOW UP INSTRUCTIONS ARE FOLLOWS: 1. Do you have a private Doctor? If you do not have a private doctor, please ask for a resource list of physicians or clinics that may be able to assist you with follow up care. 2. The Emergency Physician has interpreted your x-rays. The X-Ray specialist will also review them. If there is a change in the findings, you will be notified in 48 hours when at all possible. 3. A lab test or culture has been done, your results will be reviewed and you will be notified if you need a change in treatment. ADDITIONAL INSTRUCTIONS AND INFORMATION: 1. Your care today has been supervised by a physician who is specially trained in emergency care. Many problems require more than one evaluation for a complete diagnosis and treatment. We recommend that you schedule your follow up appointment as recommended to ensure complete treatment of you illness or injury. If you are unable to obtain follow up care and continue to have a problem, or if your condition worsens, we recommend that you return to the ED. 2. We are not able to safely determine your condition over the phone nor are we able to give sound medical advice over the phone. For these safety reasons, if you call for medical advice we will ask you to come to the ED for further evaluation. 3. If you have any questions regarding these discharge instructions please call the ED at [phone]. SAFETY INFORMATION: In the interest of safety, wellness, and injury prevention; we encourage you to wear your sealbelt, if you smoke; quite smoking, and we encourage family to use a protective helmet for bicycling and other sporting events that present an increased risk for head injury. IF YOUR SYMPTOMS WORSEN OR NEW SYMPTOMS DEVELOP, OR YOU HAVE CONCERNS ABOUT YOUR CONDITION; OR IF YOUR CONDITION WORSENS WHILE YOU ARE WAITING FOR YOUR FOLLOW UP APPOINTMENT; EITHER CONTACT YOUR PRIMARY CARE DOCTOR, THE PHYSICIAN WHOSE NAME AND NUMBER YOU WERE GIVEN, OR RETURN TO THE ED IMMEDIATELY. Scripts Hydroxyzine Hcl (HYDROXYZINE HCL) 25 Mg Tablet 1 TAB PO PRN BID PRN for ANXIETY / AGITATION, #10 TAB 0 Refills Be careful as this medication may make you mildly tired. I recommend not driving on this medication or operating heavy machinery. Prov: CLAY AZUL DO 08/06/20 CLAY AZUL DO Aug 06, 2020 06:41
[2020-08-06 07:01] LABS: BASO % 1 % (0-3); EOS # 0.2 x10^3/uL (0.0-0.7); EOS % 4 % (0-3); HEMATOCRIT 42.9 % (36.0-47.0); LYMPH # 0.8 x10^3/uL (1.0-4.8); LYMPH % 14 % (24-48); MEAN CORPUSCULAR HEMOGLOBIN 28 pg (25-35); MEAN CORPUSCULAR HGB CONC 33 g/dL (31-37); MEAN CORPUSCULAR VOLUME 85 fL (79-100); MONO # 0.4 x10^3/uL (0.0-1.1); MONO % 8 % (0-9); NEUT % 73 % (31-73); PLATELET COUNT 156 x10^3/uL (140-400); RED BLOOD COUNT 5.03 x10^6/uL (3.50-5.40); RED CELL DISTRIBUTION WIDTH 13.4 % (11.5-14.5); WHITE BLOOD COUNT 5.5 x10^3/uL (4.0-11.0)
--- NOTE | 2020-08-06 07:01 | RAD ---
PORTABLE CHEST 1V INDICATION: cp COMPARISON STUDY: 01/21/2019. FINDINGS: Lungs: Normal lung volume. No pulmonary mass or consolidation. The tracheobronchial tree and hilar structures are normal. Pleura: No pleural effusion or pneumothorax. Heart and Mediastinum: The cardiomediastinal silhouette is normal. The great vessels of the thorax are normal. IMPRESSION: No acute cardiopulmonary process. Electronically signed by: Phu Gustafson MD (08/06/2020 6:59 AM) [id number]
[2020-08-06 07:11] LABS: CALCIUM 9.4 mg/dL (8.5-10.1); CREATININE 1.2 mg/dL (0.6-1.0); GFR 57.3; POTASSIUM 3.6 mmol/L (3.5-5.1)
[2020-08-06 07:23] LABS: ALBUMIN 3.8 g/dL (3.4-5.0); ALBUMIN/GLOBULIN RATIO 0.9 (1.0-1.7); MAGNESIUM 2.2 mg/dL (1.8-2.4); TOTAL BILIRUBIN 0.3 mg/dL (0.2-1.0); TOTAL PROTEIN 7.9 g/dL (6.4-8.2)
[2020-08-06 08:03] LABS: AMPHETAMINE/METHAMPHETAMINE NEG (NEG); BARBITURATES NEG (NEG); BENZODIAZEPINES NEG (NEG); CANNABINOIDS NEG (NEG); COCAINE NEG (NEG); METHADONE NEG (NEG); OPIATES NEG (NEG); PHENCYCLIDINE NEG (NEG)
[2020-08-06] MEDS ORDERED: KETOROLAC 15 MG/ML VIAL. IVP ONE (09:00)
[2020-08-06] MEDS ORDERED: HYDR25TA PO (09:36)
[2020-08-06 09:40] VITALS: BP 119/76
--- NOTE | 2020-08-06 09:53 | EKG ---
[address] [address] Test Date: 2020-08-06 Test Time: 06:39:03 Pat Name: MAXIMILIANO DUARTE Department: Room: Gender: F Bottom Stainer: JMEMA : 1970 Requested By: CLAY AZUL Order Number: [id number] Reading MD: Measurements Intervals Mcfall Rate: 96 P: 38 LA: 174 QRS: -23 QRSD: 90 T: 24 QT: 346 QTc: 438 Interpretive Statements SINUS RHYTHM LEFTWARD AXIS OTHERWISE NORMAL ECG RI6.02 No previous ECG available for comparison
== END 2020-08-06 09:40 | disposition home or self-care (01) ==
LOC: ER 06:34
DX: F41.9 Anxiety disorder, unspecified (principal); R07.2 Precordial pain
CPT/HCPCS: 36415; 71045; 80053; 80307; 82550; 83735; 83880; 84484; 85025; 85379; 93005; 96374; 99285; J1885

== ENCOUNTER 2021-07-25 15:05 | Emergency (ER) | payer OTHER ==
[~2021-07-25] VITALS: Ht 162.6 cm; Wt 80.0 kg
[~2021-07-25 15:05] MED LIST changes: +HYDR25TA PO; -OMEP40CA45 PO; +OMEP40CA7 PO
[2021-07-25 15:16] VITALS: BP 133/90
[2021-07-25 16:27] LABS: BACTERIA,URINE FEW /HPF (0-FEW); BILIRUBIN,URINE NEG (NEG); CLARITY,URINE CLOUDY; COLOR,URINE YELLOW; GLUCOSE,URINE NEG (NEG); NITRITE,URINE NEG (NEG); RBC,URINE >40 /HPF (0-2); SQUAMOUS EPITHELIAL CELL,UR FEW /LPF; UROBILINOGEN,URINE 0.2 mg/dL (0.2 mg/dL); WBC,URINE >40 /HPF (0-4); YEAST,URINE PRESENT /HPF
--- NOTE | 2021-07-25 16:49 | PHYS DOC ---
Past History Past Medical History: UTI (JUAN MARTINO APRN) Past Surgical History: No Surgical History (JUAN MARTINO APRN) Smoking: Non-smoker Alcohol Use: None Drug Use: None (JUAN MARTINO APRN) General Adult EDM: Chief Complaint: URINARY FREQUENCY HPI: HPI: Patient is a 50-year-old female that presents today with complaint of lower abdominal pain frequency and painful urination. Patient states symptoms started last evening when she woke up in the middle the night and had to go to the restroom and she had a lot of pressure and pain while urinating. Patient denies vaginal bleeding vaginal discharge. Patient does states she had a urinary tract infection early on this year and was free of symptoms prior to today. (JUAN MARTINO APRN) Review of Systems: Review of Systems: Constitutional: Denies fever or chills Eyes: Denies change in visual acuity HENT: Denies nasal congestion or sore throat Respiratory: Denies cough or shortness of breath Cardiovascular: Denies chest pain or edema GI: lower abdominal pain, denies nausea, vomiting, bloody stools or diarrhea : dysuria and frequency Musculoskeletal: Denies back pain or joint pain Integument: Denies rash Neurologic: Denies headache, focal weakness or sensory changes Endocrine: Denies polyuria or polydipsia Lymphatic: Denies swollen glands Psychiatric: Denies depression or anxiety (JUAN MARTINO APRN) Allergies: Allergies: Allergies Coded Allergies Type Severity Reaction Last Updated Verified No Known Drug Allergies 08/06/20 No (JUAN MARTINO APRN) Physical Exam: PE: Constitutional: Well developed, well nourished, no acute distress, non-toxic appearance. [] HENT: Normocephalic, atraumatic, bilateral external ears normal, oropharynx moist, no oral exudates, nose normal. [] Eyes: PERRLA, EOMI, conjunctiva normal, no discharge. [] Neck: Normal range of motion, no tenderness, supple, no stridor. [] Cardiovascular:Heart rate regular rhythm, no murmur [] Lungs & Thorax: Bilateral breath sounds clear to auscultation [] Abdomen: lower abdomen pain with deep palpation Skin: Warm, dry, no erythema, no rash. [] Back: No tenderness, no CVA tenderness. [] Extremities: No tenderness, no cyanosis, no clubbing, ROM intact, no edema. [] Neurologic: Alert and oriented X 3, normal motor function, normal sensory function, no focal deficits noted. [] Psychologic: Affect normal, judgement normal, mood normal. [] (JUAN MARTINO APRN) Current Patient Data: Labs: Laboratory Tests Test 07/25/21 15:22 Urine Collection Type Unknown Urine Color Yellow Urine Clarity Cloudy Urine pH 5.5 Urine Specific [place] >=1.030 Urine Protein 100 mg/dl (NEG-TRACE) Urine Glucose (UA) Neg mg/dL (NEG) Urine Ketones (Stick) Neg mg/dL (NEG) Urine Blood Large (NEG) Urine Nitrite Neg (NEG) Urine Bilirubin Neg (NEG) Urine Urobilinogen Dipstick 0.2 mg/dL (0.2 mg/dL) Urine Leukocyte Esterase Mod (NEG) Urine RBC >40 /HPF (0-2) Urine WBC >40 /HPF (0-4) Urine Squamous Epithelial Cells Few /LPF Urine Bacteria Few /HPF (0-FEW) Urine Yeast Present /HPF Vital Signs: Vital Signs Date Time Temp Pulse Resp B/P (MAP) Pulse Ox O2 Delivery O2 Flow Rate FiO2 07/25/21 15:16 98.2 94 18 133/90 (104) 98 Room Air (JUAN MARTINO APRN) EKG: EKG: [] (JUAN MARTINO APRN) Radiology/Procedures: Radiology/Procedures: [] (JUAN MARTINO APRN) Heart Score: C/O Chest Pain: N/A Risk Factors: Risk Factors: DM, Current or recent (<one month) smoker, HTN, HLP, family history of CAD, obesity. Risk Scores: Score 0 - 3: 2.5% MACE over next 6 weeks - Discharge Home Score 4 - 6: 20.3% MACE over next 6 weeks - Admit for Clinical Observation Score 7 - 10: 72.7% MACE over next 6 weeks - Early Invasive Strategies (JUAN MARTINO APRN) Course & Med Decision Making: Course & Med Decision Making Pertinent Labs and Imaging studies reviewed. (See chart for details) [Patient presents today with urinary frequency and painful urination. Urinalysis done in the emergency department notes UTI. Patient will be treated with Macrobid 100 mg twice daily for 5 days. Patient verbalized understanding of the need to follow-up with primary care physician. Patient instructed to return if symptoms do not get worse or she continues to have concerns.] (JUAN MARTINO APRN) Dragon Disclaimer: Dragon Disclaimer: This electronic medical record was generated, in whole or in part, using a voice recognition dictation system. (JUAN MARTINO APRN) Attending Co-Sign The patient was seen and interviewed as well as examined at the bedside. The chart was reviewed. The case was discussed. Agree with the plan of care. (YUE HARPER DO) Departure Departure: Impression: Primary Impression: UTI (urinary tract infection) Qualified Codes: N30.00 - Acute cystitis without hematuria Disposition: HOME / SELF CARE / HOMELESS Condition: STABLE Referrals: AUDI HUANG APRN (PCP) Patient Instructions: Urinary Tract Infection Additional Instructions: Patient instructed to increase fluids, take antibiotics Macrobid 100mg take 1 tablet twice daily for 5 days, follow-up with primary care physician for repeat UA. Return to the emergency department for increased symptoms fever chills or not feeling well. JUAN MARTINO APRN Jul 25, 2021 16:49 YUE HARPER DO Jul 26, 2021 09:16
== END 2021-07-25 16:53 | disposition home or self-care (01) ==
LOC: ER 15:05
DX: N30.00 Acute cystitis without hematuria (principal); Z87.440 Personal history of urinary (tract) infections
CPT/HCPCS: 81001; 87086; 99283